=== PATIENT | female | born 1950 | race Caucasian/White ===

== ENCOUNTER 2016-03-24 00:16 | Emergency (ER) | payer OTHER ==
[~2016-03-24] VITALS: Ht 152.4 cm; Wt 65.0 kg
[~2016-03-24 00:16] MED LIST: AMLO-145 PO; ATOR20TA38 PO; CNC30T PO; ERGO50007 PO; FLUO10TA PO; HYDR-3672 PO; ISOS30TA5 PO; LEVO75TA5 PO; METO-448 PO; ONDA4TAB8 PO; PRED1TAB17 PO; RANI150T9 PO; TACR1CAP26 PO
[2016-03-24 00:25] VITALS: Ht 152.4 cm; Wt 65.0 kg
[2016-03-24] MEDS ORDERED: FUROSEMIDE 20 MG INJ IV STA (00:27)
[2016-03-24] MEDS ORDERED: hydrALAzine 20 MG INJ IV ONE (00:30)
[2016-03-24 01:01] LABS: BASOPHILS % 0.4 % (0.0-2.0); EOSINOPHILS # 0.3 10^3/ul (0.0-0.5); EOSINOPHILS % 4.3 % (0.0-7.0); HEMATOCRIT 36.9 % (37.0-47.0); HEMOGLOBIN 11.9 g/dl (12.0-16.0); LYMPHOCYTES # 1.6 10^3/ul (0.8-2.9); MEAN CORPUSCULAR HEMOGLOBIN 31.7 pg (29.0-33.0); MEAN CORPUSCULAR HGB CONC 32.2 g/dl (32.0-37.0); MEAN CORPUSCULAR VOLUME 98.3 fl (82.0-101.0); MEAN PLATELET VOLUME 7.5 fl (7.4-10.4); MONOCYTE # 0.2 10^3/ul (0.3-0.9); MONOCYTES % 3.9 % (0.0-11.0); NEUTROPHIL # 4.1 10^3/ul (1.6-7.5); NEUTROPHILS % 65.4 % (39.0-77.0); PLATELET COUNT 197 10^3/UL (140-440); RED BLOOD COUNT 3.75 10^6/ul (4.20-5.40); RED CELL DISTRIBUTION WIDTH 20.8 % (11.5-14.5); UNCORRECTED WBC 6.3 10^3/ul (4.8-10.8); WHITE BLOOD COUNT 6.3 10^3/ul (4.8-10.8)
[2016-03-24 01:04] LABS: CONDITION 1; LH ANALYZER COMMENTS 1
[2016-03-24 01:09] LABS: ALBUMIN 3.9 g/dl (3.3-4.9)
[2016-03-24 01:10] LABS: INR 0.97; POTASSIUM 4.3 mmol/L (3.5-5.1); PROTIME 12.9 Sec (12.2-14.2)
[2016-03-24 01:11] LABS: PARTIAL THROMBOPLASTIN TIME 32.9 Sec (25.0-35.0)
[2016-03-24 01:12] LABS: BILIRUBIN,INDIRECT 0.2 mg/dl (0-1.1); BILIRUBIN,TOTAL 0.2 mg/dl (0.2-1.3); CREATININE 5.85 mg/dl (0.44-1.00)
[2016-03-24 01:13] LABS: ALBUMIN/GLOBULIN RATIO 0.97; CALCIUM 7.2 mg/dl (8.4-10.2); TOTAL PROTEIN 7.9 g/dl (6.1-8.1)
[2016-03-24 01:25] LABS: TROPONIN-I 0.088 ng/ml (0.00-0.12)
[2016-03-24] MEDS ORDERED: ONDANSETRON 4 MG INJ IV STA (02:26)
[2016-03-24] MEDS ORDERED: ONDANSETRON 4 MG INJ IV ONE (02:32)
--- NOTE | 2016-03-24 02:38 | ERA ---
ER Documentation Chief Complaint Date/Time DATE: 03/24/16 TIME: 02:36 Chief Complaint SOB this evening, denies pain. found hypertensive per ems HPI This is a 65 year female shortness breath this evening. Denies any pain. Patient is on hypertensive illness. Patient is a Tuesday dialysis patient. Denies any nausea vomiting fevers or chills. Denies any other current complaints. Patient follows a [facility] ROS All systems reviewed and are negative except as per history of present illness. Medications Home Meds Reported Medications Tacrolimus* (Prograf*) 1 Mg Capsule, 3 MG PO DAILY, CAP 10/22/14 Amlodipine Besylate* (Amlodipine Besylate*) 5 Mg Tablet, 5 MG PO BID, TAB 10/22/14 Ranitidine Hcl* (Zantac*) 150 Mg Tablet, 150 MG PO BID, TAB 10/22/14 Atorvastatin Calcium* (Atorvastatin Calcium*) 20 Mg Tablet, 30 MG PO HS, TAB 10/22/14 Hydralazine Hcl* (Hydralazine Hcl*) 50 Mg Tablet, 50 MG PO Q8, TAB 10/22/14 Prednisone* (Prednisone*) 1 Mg Tab, 4 MG PO DAILY, TAB 10/22/14 Isosorbide Mononitrate* (Isosorbide Mononitrate*) 30 Mg Tab.er.24h, 30 MG PO BID , TAB 10/22/14 Cinacalcet* (Sensipar*) 30 Mg Tab, 30 MG PO DAILY, TAB 10/22/14 Ondansetron Hcl* (Zofran*) 4 Mg Tablet, 4 MG PO Q6H Y for NAUSEA AND OR VOMITING , TAB 10/22/14 Fluoxetine Hcl* (Prozac*) 10 Mg Tablet, 10 MG PO DAILY, TAB 10/22/14 Metoprolol Tartrate* (Lopressor*) 25 Mg Tab, 25 MG PO BID 12/04/11 Ergocalciferol (Vitamin D) 50,000 Unit Capsule, 38907 UNIT PO 12/04/11 Levothyroxine Sodium* (Levothyroxine Sodium*) 75 Mcg Tablet, 75 MCG PO DAILY 12/04/11 Allergies Allergies: Coded Allergies: Penicillins (Verified Allergy, Mild, ITCHING, 10/22/14) aspirin (Verified Allergy, Mild, ITCHING, 10/22/14) ibuprofen (Verified Allergy, Mild, ITCHING, 10/22/14) PMhx/Soc History of Surgery: Yes (Kidney transplant, ) Hx Neurological Disorder: No Hx Respiratory Disorders: Yes (Pneumonia, copd) Hx Cardiac Disorders: Yes (HTN, Hyperlipidemia) Hx Psychiatric Problems: Yes (Depression) Hx Miscellaneous Medical Probl: Yes (ESRD ON DIALYSIS) Hx Alcohol Use: No Hx Substance Use: No Hx Tobacco Use: No Smoking Status: Current every day smoker Physical Exam Vitals Vital Signs Date Time Temp Pulse Resp B/P Pulse Ox O2 Delivery O2 Flow Rate FiO2 03/24/16 02:14 101 18 152/91 98 Room Air 2.0 Nasal Cannula 03/24/16 00:52 2 03/24/16 00:25 97.3 105 20 198/105 100 Physical Exam Const: [] Head: Atraumatic Eyes: Normal Conjunctiva ENT: Normal External Ears, Nose and Mouth. Neck: Full range of motion..~ No meningismus. Resp: Clear to auscultation bilaterally Cardio: Regular rate and rhythm, no murmurs Abd: Soft, non tender, non distended. Normal bowel sounds Skin: No petechiae or rashes Back: No midline or flank tenderness Ext: No cyanosis, or edema Neur: Awake and alert Psych: Normal Mood and Affect Result Diagram: 03/24/160 03/24/16 0050 Results 24 hrs Laboratory Tests Test 03/24/16 00:50 Activated Partial Thromboplast Time 32.9Sec Alanine Aminotransferase (ALT/SGPT) 17IU/L Albumin 3.9g/dl Albumin/Globulin Ratio 0.97 Alkaline Phosphatase 147IU/L Anion Gap 19 Aspartate Amino Transf (AST/SGOT) 28IU/L B-Type Natriuretic Peptide 63255NO/ML Basophils # 0.010^3/ul Basophils % 0.4% Blood Morphology Comment Blood Urea Nitrogen 36mg/dl Calcium Level 7.2mg/dl Carbon Dioxide Level 27mmol/L Chloride Level 96mmol/L Creatinine 5.85mg/dl Direct Bilirubin 0.00mg/dl Eosinophils # 0.310^3/ul Eosinophils % 4.3% Globulin 4.00g/dl Glucose Level 124mg/dl Hematocrit 36.9% Hemoglobin 11.9g/dl INR International Normalized Ratio 0.97 Indirect Bilirubin 0.2mg/dl Lymphocytes # 1.610^3/ul Lymphocytes % 26.0% Mean Corpuscular Hemoglobin 31.7pg Mean Corpuscular Hemoglobin Concent 32.2g/dl Mean Corpuscular Volume 98.3fl Mean Platelet Volume 7.5fl Monocytes # 0.210^3/ul Monocytes % 3.9% Neutrophils # 4.110^3/ul Neutrophils % 65.4% Nucleated Red Blood Cells # 0.010^3/ul Nucleated Red Blood Cells % 0.0/100WBC Platelet Count 87532^3/UL Potassium Level 4.3mmol/L Prothrombin Time 12.9Sec Prothrombin Time Ratio 1.0 Red Blood Count 3.7510^6/ul Red Cell Distribution Width 20.8% Sodium Level 138mmol/L Total Bilirubin 0.2mg/dl Total Protein 7.9g/dl Troponin I 0.088ng/ml White Blood Count 6.310^3/ul Current Medications Medications (Trade) Dose Ordered Sig/Yang Route PRN Reason Start Time Stop Time Status Last Admin Dose Admin Furosemide (Lasix) 60 mg ONCE STAT IV 03/24/16 00:27 03/24/16 00:31 DC Hydralazine HCl (Apresoline) 20 mg ONCE ONCE IV 03/24/16 00:30 03/24/16 00:32 DC 03/24/16 01:13 Ondansetron HCl (Zofran Inj) 4 mg ONCE STAT IV 03/24/16 02:26 03/24/16 02:27 DC 03/24/16 02:33 Ondansetron HCl (Zofran Inj) 4 mg ONCE ONCE IV 03/24/16 02:32 03/24/16 02:33 DC Procedures/MDM EKG: Rate/Rhythm: Sinus tachycardia at 110 beats per QRS, ST, T-waves: [No changes consistent w/ acute ischemia] Impression: [Sinus tachycardia Chest X-ray 1V Interpreted by me: Soft Tissue: No acute abnormalities Bones: No acute abnormalities Mediastinum/Cardiac Silhouette/Lungs: Increased interstitial fluid markings. Cephalization of vessels. Impression: CHF Patient's heart failure symptoms is concerning for acute decompensation and will require inpatient workup and monitoring. Further w/u for ischemia, arrhythmia, PE or dissection will be deferred to the inpatient team. Patient will be transferred to [place] per insurance Accepting Care Team: Current data and ongoing care discussed. Time: 2 AM Primary Provider: Patient to be transferred to [place] Consulting: [place] [facility] Outstanding Data: none Critical Care: Time: 45 minutes Treatments/Evaluations: Close monitoring and treatment of unstable vital signs, cardiorespiratory, and neurologic status, while maintaining tight balance of fluid, respiratory, and cardiac interventions. Departure Diagnosis: Primary Impression: Shortness of breath Additional Impression: CHF (congestive heart failure) Qualified Code: I50.9 - Congestive heart failure, unspecified congestive heart failure chronicity, unspecified congestive heart failure type TAYLOR MANCUSO Mar 24, 2016 02:38
[2016-03-24 03:15] VITALS: BP 137/67; PULSE 101; RESP 19; TEMP 97.6
--- NOTE | 2016-03-24 04:59 | RADRPT ---
AMENDMENT: 03/24/2016 4:59:06 AM Librado Okeefe MD CLINICAL INDICATION: 65-year-old FEMALE with chest pain. PROCEDURE: CHEST - 1 VIEW CLINICAL INDICATION: 65-year-old male with chest pain. TECHNIQUE: A single frontal AP view of the chest was performed. The images were reviewed on a PAC S workstation. COMPARISON: Chest x-ray October 23, 2014. FINDINGS: The cardiomediastinal silhouette is mildly enlarged. The thoracic aortic arch is calcified. There is mild pulmonary vascular congestion. There is a shallow inspiration. There is mild bibasilar sub segmental atelectasis. There is no evidence for an infiltrate. There is no evidence for pneumothora x. The osseous structures are intact. IMPRESSION: 1. Cardiomegaly. 2. Calcified thoracic aortic arch. 3. Pulmonary vascular congestion. 4. Shallow inspiration. 5. Mild bibasilar subsegmental atelectasis. .Librado Okeefe MD, Date Time Electronically viewed and signed by .Librado Okeefe MD, on 03/24/2016 05:00 .M/
== END 2016-03-24 03:26 | disposition short-term general hospital (02) ==
LOC: E/R 00:16
DX: R06.02 Shortness of breath (principal); I50.9 Heart failure, unspecified; I12.0 Hypertensive chronic kidney disease with stage 5 chronic kidney disease or end stage renal disease; N18.6 End stage renal disease; E11.9 Type 2 diabetes mellitus without complications; Z99.2 Dependence on renal dialysis
CPT/HCPCS: 71010; 80053; 83880; 84484; 85025; 85610; 85730; 93005; 96374; 96375; 99291; J0360; J2405